=== PATIENT | female | born 1945 | race Caucasian/White ===

== ENCOUNTER → 2016-07-23 | Outpatient (CLI) | payer MEDICARE ==
[~2016-07-23] MED LIST: ALEN70TA5 PO; ASPI-13 PO; INSU100V8 SQ; LEVO25TA4 PO; LISI40TA PO; METF10002 PO; PRAV40TA2 PO; TIOT18CA INH
== END | disposition home or self-care (01) ==
LOC: CVU 10:29
PROVIDERS: ATTEND Registered Nurse
DX: Z86.73 Personal history of transient ischemic attack (TIA), and cerebral infarction without residual deficits (principal)
CPT/HCPCS: 93880

== ENCOUNTER 2019-01-30 18:52 | Inpatient (IN) | payer MEDICARE ==
[~2019-01-30] VITALS: Ht 165.1 cm; Wt 62.0 kg
[~2019-01-30 18:52] MED LIST changes: -ALEN70TA5 PO; +ALEN70TA6 PO; +CLOP75TA PO; +GLIP5TAB10 PO
--- NOTE | 2019-01-30 19:00 | NUR ---
NO ASWER FROM TRIAGE
[2019-01-30] MEDS ORDERED: AMLO10TA8 PO (19:35)
[2019-01-30] MEDS ORDERED: EMPA25TA PEG (19:35)
[2019-01-30 20:00] LABS: BASOPHILS # (AUTO) 0.01 x10^3/uL (0-0.1); BASOPHILS % (AUTO) 0 % (0-1); EOSINOPHILS # (AUTO) 0.19 x10^3/uL (0-0.4); EOSINOPHILS % (AUTO) 4 % (1-7); LYMPHOCYTES # (AUTO) 1.21 x10^3/uL (1-3.4); LYMPHOCYTES % (AUTO) 23 % (22-44); MD NO; MEAN CORPUSCULAR HEMOGLOBIN 31.7 pg (27.0-34.8); MEAN CORPUSCULAR HGB CONC 33.6 g/dL (32.4-35.8); MEAN CORPUSCULAR VOLUME 94.2 fL (80-100); MEAN PLATELET VOLUME 7.4 fL (7.4-10.4); MONOCYTES # (AUTO) 0.41 x10^3/uL (0.2-0.8); MONOCYTES % (AUTO) 8 % (2-9); NEUTROPHILS # (AUTO) 3.49 x10^3/uL (1.8-6.8); NEUTROPHILS % (AUTO) 66 % (42-75); PLATELET COUNT 403 x10^3/uL (130-400); RED BLOOD COUNT 2.69 x10^6/uL (3.82-5.3); RED CELL DISTRIBUTION WIDTH 15.1 % (9.6-15.2)
[2019-01-30] MEDS ORDERED: ONDANSETRON 2MG/ML, 2ML IVPush ONE (20:00)
[2019-01-30] MEDS ORDERED: MORPHINE SULFATE 4 MG/ML, 1ML IVPush PRN (20:00)
[2019-01-30 20:08] LABS: INTERNATIONAL NORMALIZED RATIO 0.95 (0.93-1.1)
[2019-01-30 20:09] LABS: ALANINE AMINOTRANSFERASE 31 U/L (12-78); ALBUMIN 3.8 g/dL (3.4-5.0); ANION GAP 6 mmol/L (5-15); CHLORIDE 109 mmol/L (98-107); CREATININE 1.57 mg/dL (0.55-1.02)
[2019-01-30 20:11] LABS: ALKALINE PHOSPHATASE 79 U/L (45-117); BILIRUBIN,TOTAL 0.4 mg/dL (0.2-1.0); TOTAL PROTEIN 7.4 g/dL (6.4-8.2)
[2019-01-30] MEDS ORDERED: ONDANSETRON 2MG/ML, 2ML ONE (20:26)
[2019-01-30] MEDS ORDERED: MORPHINE SULFATE 4 MG/ML, 1ML ONE (20:26)
--- NOTE | 2019-01-30 20:40 | NUR ---
PT HAS CO OF LOWER LEG PAIN AND NUMBNESS. PT STATES SHE IS PT W DR MENA AND RECENTLY HAD A "ROTOR ROOTER" PROCEDURE DONE W A STENT. WAS TOLD TO COME TO ED IF PAIN WAS WORSE. IV ESTABLISHED MEDICATED PER ORDERS. WILL BE ADMITTED.
--- NOTE | 2019-01-30 20:45 | NUR ---
PT CHANGING IN PJ BOTTOMS AND GIVEN WARM BLANKET. PT IS MORE CHEERFUL AFTER TALKING.
[2019-01-30] MEDS ORDERED: ACETAMINOPHEN 325 MG TABLET PO PRN (21:30)
[2019-01-30] MEDS ORDERED: ONDANSETRON 2MG/ML, 2ML IVPush PRN (21:30)
--- NOTE | 2019-01-30 21:42 | NUR ---
REPORT TO MAYUR
[2019-01-30] MEDS ORDERED: SODIUM POLYSTYRENE SULFONATE ORAL SUSP PO ONE (22:00)
[2019-01-30] MEDS ORDERED: ALBUTEROL/IPRATROPIUM 2.5MG/0.5MG, 3 ML HHN PRN (22:00)
[2019-01-30] MEDS ORDERED: INSULIN GLARGINE 100 UNITS/ML, PEN SQ-INSULIN SCH (22:00)
[2019-01-30 22:02] VITALS: BP 152/75
[2019-01-30] MEDS: PRAVASTATIN 40 MG TABLET PO SCH (22:31)
[2019-01-30] MEDS: ENOXAPARIN 40 MG/0.4 ML SQ SCH (22:31)
[2019-01-30] MEDS: SODIUM CHLORIDE 0.9% 1,000 ML IV SCH (22:31)
[2019-01-30 22:46] VITALS: BP 152/75
[2019-01-31 01:11] VITALS: BP 105/57
[2019-01-31 05:20] LABS: BASOPHILS # (AUTO) 0.02 x10^3/uL (0-0.1); BASOPHILS % (AUTO) 1 % (0-1); EOSINOPHILS % (AUTO) 4 % (1-7); LYMPHOCYTES # (AUTO) 1.52 x10^3/uL (1-3.4); LYMPHOCYTES % (AUTO) 32 % (22-44); MD NO; MEAN CORPUSCULAR HGB CONC 32.8 g/dL (32.4-35.8); MEAN CORPUSCULAR VOLUME 94.5 fL (80-100); MEAN PLATELET VOLUME 7.4 fL (7.4-10.4); MONOCYTES # (AUTO) 0.51 x10^3/uL (0.2-0.8); MONOCYTES % (AUTO) 11 % (2-9); NEUTROPHILS % (AUTO) 53 % (42-75); PLATELET COUNT 372 x10^3/uL (130-400); RED CELL DISTRIBUTION WIDTH 14.8 % (9.6-15.2)
[2019-01-31 05:22] LABS: HCT (SEDRATE) 23.4 % (34.6-47.8)
[2019-01-31 05:28] LABS: ANION GAP 3 mmol/L (5-15); CALCIUM 8.3 mg/dL (8.5-10.1); CHLORIDE 116 mmol/L (98-107); CREATININE 1.28 mg/dL (0.55-1.02)
[2019-01-31] MEDS: LEVOTHYROXINE 25 MCG TABLET PO SCH (06:03)
[2019-01-31] MEDS: HYDROcodone/APAP 5/325 TABLET PO PRN (06:04)
[2019-01-31] MEDS: INSULIN LISPRO 100 UNITS/ML, PEN SQ-INSULIN SCH ×4 (07:00→23:58)
[2019-01-31] MEDS ORDERED: DEXTROSE 4 GM TAB.CHEW PO PRN (08:00)
[2019-01-31] MEDS ORDERED: GLUCAGON 1 MG IM PRN (08:00)
[2019-01-31] MEDS: DEXTROSE 50%, 50ML SYRINGE IVPush PRN ×2 (08:21→11:48)
[2019-01-31] MEDS: SODIUM CHLORIDE 0.9% 1,000 ML IV SCH ×2 (08:21→18:00)
[2019-01-31] MEDS: SODIUM CHLORIDE FLUSH 10ML SYR IVF SCH ×2 (09:00→23:19)
[2019-01-31] MEDS: AMLODIPINE 10 MG TAB PO SCH (09:00)
[2019-01-31] MEDS ORDERED: LISINOPRIL 40 MG TABLET PO SCH (09:00)
[2019-01-31] MEDS: CLOPIDOGREL 75 MG TABLET PO SCH (09:00)
[2019-01-31 09:56] VITALS: BP 115/64
[2019-01-31 10:05] LABS: HEMOGLOBIN A1C 8.9 % (4.2-6.3)
[2019-01-31 14:00] VITALS: BP 129/74
[2019-01-31] MEDS ORDERED: HEPARIN 1,000 UNITS/ML, 30ML ONE (16:00)
[2019-01-31] MEDS ORDERED: PROTAMINE SULFATE 10 MG/ML, 5ML ONE (16:01)
[2019-01-31] MEDS ORDERED: THROMBIN 5,000 UNIT VIAL TP ONE ×2 (16:01→19:55)
[2019-01-31] MEDS ORDERED: FENTANYL PF 250 MCG/5ML ONE (16:19)
[2019-01-31] MEDS ORDERED: ONDANSETRON 2MG/ML, 2ML ONE (16:35)
[2019-01-31] MEDS ORDERED: PROPOFOL 10 MG/ML, 20ML ONE (16:35)
[2019-01-31] MEDS ORDERED: SUCCINYLCHOLINE 20 MG/ML, 10ML ONE (16:35)
[2019-01-31] MEDS ORDERED: ROCURONIUM 10MG/ML,5ML ONE (16:35)
[2019-01-31] MEDS ORDERED: PHENYLEPHRINE 10 MG/ML ONE (16:35)
[2019-01-31] MEDS ORDERED: DEXAMETHASONE 4 MG/ML, 1ML ONE (16:35)
[2019-01-31] MEDS ORDERED: CEFAZOLIN 1,000 MG ONE (16:35)
[2019-01-31] MEDS ORDERED: SUGAMMADEX 200 MG/2 ML IVPush ONE (16:35)
[2019-01-31] MEDS ORDERED: DEXTROSE 50%, 50ML SYRINGE ONE (16:35)
[2019-01-31] MEDS ORDERED: LABETALOL 5MG/ML, 20ML IV PRN (17:30)
[2019-01-31] MEDS ORDERED: HYDROmorphone 2 MG/ML, 1ML IVPush PRN (17:30)
[2019-01-31] MEDS ORDERED: MEPERIDINE/PF 25MG/ML,1ML IVPush PRN (17:30)
[2019-01-31] MEDS ORDERED: PROMETHAZINE 25 MG/ML, 1ML IV PRN (17:30)
[2019-01-31] MEDS ORDERED: HALOPERIDOL 5 MG/ML IV PRN (17:30)
[2019-01-31] MEDS ORDERED: hydrALAzine 20 MG/ML, 1ML IV PRN (17:30)
[2019-01-31] MEDS ORDERED: OXYcodone 5 MG/5 ML ORAL.SOL UDC PO PRN (17:30)
[2019-01-31] MEDS ORDERED: ALBUTEROL SULFATE 2.5 MG/3 ML NPPB PRN (17:30)
[2019-01-31] MEDS ORDERED: ALBUTEROL/IPRATROPIUM 2.5MG/0.5MG, 3 ML HHN PRN (19:30)
[2019-01-31] MEDS ORDERED: CALCIUM CHLORIDE 10%, 10ML SYR ONE (19:35)
[2019-01-31] MEDS ORDERED: FENTANYL PF 100 MCG/2ML ONE (21:09)
[2019-01-31] MEDS: FENTANYL PF 100 MCG/2ML IV PRN ×3 (21:12→21:25)
[2019-01-31] MEDS: ENOXAPARIN 40 MG/0.4 ML SQ SCH (21:30)
[2019-01-31] MEDS ORDERED: OXYcodone 5 MG/5 ML ORAL.SOL UDC ONE (21:44)
[2019-01-31] MEDS ORDERED: hydrALAzine 20 MG/ML, 1ML ONE (21:45)
[2019-01-31 22:06] VITALS: BP 158/79
[2019-01-31] MEDS: CALCIUM CARBONATE 500 MG TAB.CHEW PO SCH (23:18)
[2019-01-31] MEDS: PRAVASTATIN 40 MG TABLET PO SCH (23:19)
[2019-01-31] MEDS: INSULIN GLARGINE 100 UNITS/ML, PEN SQ-INSULIN SCH (23:59)
[2019-02-01] MEDS: HYDROcodone/APAP 5/325 TABLET PO PRN (00:13)
[2019-02-01 00:48] VITALS: BP 131/73
[2019-02-01 05:08] LABS: BASOPHILS # (AUTO) 0.02 x10^3/uL (0-0.1); BASOPHILS % (AUTO) 0 % (0-1); EOSINOPHILS % (AUTO) 0 % (1-7); LYMPHOCYTES # (AUTO) 0.72 x10^3/uL (1-3.4); LYMPHOCYTES % (AUTO) 12 % (22-44); MD NO; MEAN CORPUSCULAR HEMOGLOBIN 31.6 pg (27.0-34.8); MEAN CORPUSCULAR HGB CONC 33.4 g/dL (32.4-35.8); MEAN CORPUSCULAR VOLUME 94.6 fL (80-100); MEAN PLATELET VOLUME 7.6 fL (7.4-10.4); MONOCYTES # (AUTO) 0.36 x10^3/uL (0.2-0.8); MONOCYTES % (AUTO) 6 % (2-9); NEUTROPHILS # (AUTO) 4.83 x10^3/uL (1.8-6.8); NEUTROPHILS % (AUTO) 82 % (42-75); PLATELET COUNT 307 x10^3/uL (130-400); RED BLOOD COUNT 3.09 x10^6/uL (3.82-5.3); RED CELL DISTRIBUTION WIDTH 14.3 % (9.6-15.2)
[2019-02-01] MEDS: SODIUM CHLORIDE 0.9% 1,000 ML IV SCH ×2 (05:10→19:49)
[2019-02-01] MEDS: LEVOTHYROXINE 25 MCG TABLET PO SCH (05:10)
[2019-02-01 05:25] LABS: CHLORIDE 108 mmol/L (98-107)
[2019-02-01 05:30] LABS: ALBUMIN 2.8 g/dL (3.4-5.0); ANION GAP 8 mmol/L (5-15); CALCIUM 8.2 mg/dL (8.5-10.1); CREATININE 1.05 mg/dL (0.55-1.02)
[2019-02-01 08:34] VITALS: BP 148/70
[2019-02-01] MEDS: CLOPIDOGREL 75 MG TABLET PO SCH (08:37)
[2019-02-01] MEDS: AMLODIPINE 10 MG TAB PO SCH (08:37)
[2019-02-01] MEDS: CALCIUM CARBONATE 500 MG TAB.CHEW PO SCH ×2 (08:37→21:31)
[2019-02-01] MEDS: MULTIVITS,STRESS FORMULA 1 TABLET PO SCH (08:37)
[2019-02-01] MEDS: SODIUM CHLORIDE FLUSH 10ML SYR IVF SCH ×2 (08:39→21:00)
[2019-02-01] MEDS: ENOXAPARIN 40 MG/0.4 ML SQ SCH (08:40)
[2019-02-01] MEDS: INSULIN LISPRO 100 UNITS/ML, PEN SQ-INSULIN SCH ×4 (08:41→21:32)
[2019-02-01] MEDS: ASCORBIC ACID 500 MG TABLET PO SCH ×2 (08:42→17:38)
[2019-02-01] MEDS ORDERED: ACETAMINOPHEN 325 MG TABLET PO PRN (11:00)
[2019-02-01 14:08] VITALS: BP 150/73
[2019-02-01] MEDS ORDERED: CHOLECALCIFEROL 400 UNITS/ML ORAL SOL PO SCH (16:30)
[2019-02-01 17:50] VITALS: BP 153/71
[2019-02-01] MEDS: CARVEDILOL 6.25 MG TABLET PO SCH (17:52)
[2019-02-01] MEDS: CHOLECALCIFEROL 400 UNITS/ML ORAL SOL PO SCH (18:12)
[2019-02-01 19:05] VITALS: BP 157/70
[2019-02-01] MEDS: PRAVASTATIN 40 MG TABLET PO SCH (21:31)
[2019-02-01] MEDS: INSULIN GLARGINE 100 UNITS/ML, PEN SQ-INSULIN SCH (21:32)
[2019-02-02 00:33] VITALS: BP 146/64
[2019-02-02] MEDS: HYDROcodone/APAP 5/325 TABLET PO PRN (01:11)
[2019-02-02 05:01] LABS: % IRON SATURATION 14 % (20-55); IRON LEVEL 36 mcg/dL (50-170); TOTAL IRON BINDING CAPACITY 255 mcg/dL (250-450)
[2019-02-02 07:14] VITALS: BP 144/71
[2019-02-02] MEDS: CARVEDILOL 6.25 MG TABLET PO SCH ×2 (07:33→18:09)
[2019-02-02] MEDS: LEVOTHYROXINE 25 MCG TABLET PO SCH (07:33)
[2019-02-02] MEDS: CALCIUM CARBONATE 500 MG TAB.CHEW PO SCH ×2 (07:42→21:07)
[2019-02-02] MEDS: MULTIVITS,STRESS FORMULA 1 TABLET PO SCH (07:42)
[2019-02-02] MEDS: CLOPIDOGREL 75 MG TABLET PO SCH (07:42)
[2019-02-02] MEDS: ASCORBIC ACID 500 MG TABLET PO SCH ×2 (07:42→16:51)
[2019-02-02] MEDS: INSULIN LISPRO 100 UNITS/ML, PEN SQ-INSULIN SCH ×4 (07:43→21:08)
[2019-02-02] MEDS: SODIUM CHLORIDE FLUSH 10ML SYR IVF SCH ×2 (07:43→21:09)
[2019-02-02] MEDS ORDERED: FERROUS SULFATE 325 MG TABLET PO SCH (08:30)
[2019-02-02] MEDS ORDERED: SENNA/DOCUSATE TABLET PO SCH (09:00)
[2019-02-02] MEDS ORDERED: HYDROcodone/APAP 5/325 TABLET PO PRN (09:30)
[2019-02-02] MEDS ORDERED: BISACODYL 10 MG SUPP PR ONE (10:30)
[2019-02-02] MEDS ORDERED: MAGNESIUM CITRATE 300ML ORAL SOL PO ONE ×2 (10:30→11:00)
[2019-02-02] MEDS: ACETAMINOPHEN 325 MG TABLET PO SCH ×3 (12:22→22:56)
[2019-02-02 14:17] VITALS: BP 127/74
[2019-02-02] MEDS: SODIUM CHLORIDE 0.9% 1,000 ML IV SCH (14:52)
[2019-02-02] MEDS ORDERED: CHOLECALCIFEROL 400 UNITS/ML ORAL SOL PO SCH (16:30)
[2019-02-02] MEDS: CHOLECALCIFEROL 400 UNITS/ML ORAL SOL PO SCH (16:51)
[2019-02-02 18:08] VITALS: BP 155/65
[2019-02-02 19:46] VITALS: BP 143/59
[2019-02-02] MEDS: ENOXAPARIN 40 MG/0.4 ML SQ SCH (21:07)
[2019-02-02] MEDS: PRAVASTATIN 40 MG TABLET PO SCH (21:07)
[2019-02-02] MEDS: INSULIN GLARGINE 100 UNITS/ML, PEN SQ-INSULIN SCH (21:08)
[2019-02-03 03:45] VITALS: BP 127/76
[2019-02-03] MEDS: CARVEDILOL 6.25 MG TABLET PO SCH ×2 (05:32→17:30)
[2019-02-03] MEDS: LEVOTHYROXINE 25 MCG TABLET PO SCH (05:32)
[2019-02-03] MEDS: ACETAMINOPHEN 325 MG TABLET PO SCH ×3 (05:32→16:40)
[2019-02-03] MEDS: INSULIN LISPRO 100 UNITS/ML, PEN SQ-INSULIN SCH ×3 (07:00→16:40)
[2019-02-03] MEDS: SODIUM CHLORIDE 0.9% 1,000 ML IV SCH (07:20)
[2019-02-03] MEDS ORDERED: SENNA/DOCUSATE TABLET PO PRN (08:00)
[2019-02-03] MEDS ORDERED: HYDROcodone/APAP 5/325 TABLET PO PRN (08:00)
[2019-02-03 08:10] VITALS: BP 151/69
[2019-02-03] MEDS: CLOPIDOGREL 75 MG TABLET PO SCH (08:15)
[2019-02-03] MEDS: MULTIVITS,STRESS FORMULA 1 TABLET PO SCH (08:15)
[2019-02-03] MEDS: SODIUM CHLORIDE FLUSH 10ML SYR IVF SCH (08:16)
[2019-02-03] MEDS: CALCIUM CARBONATE 500 MG TAB.CHEW PO SCH (08:16)
[2019-02-03] MEDS: LACTOBACILLUS CHEW TABLET PO SCH ×2 (08:16→16:40)
[2019-02-03] MEDS: ASCORBIC ACID 500 MG TABLET PO SCH ×2 (08:16→16:41)
[2019-02-03] MEDS ORDERED: INSU100I11 SQ-INSULIN (10:42)
[2019-02-03] MEDS ORDERED: ASCO500T6 PO (10:42)
[2019-02-03] MEDS ORDERED: SENN-193 PO (10:42)
[2019-02-03] MEDS ORDERED: CALC200T24 PO (10:42)
[2019-02-03] MEDS ORDERED: ACID1TAB7 PO (10:42)
[2019-02-03] MEDS ORDERED: FERR-51 PO (10:42)
[2019-02-03] MEDS ORDERED: ACET325T26 PO (10:42)
[2019-02-03] MEDS ORDERED: MULT1TAB76 PO (10:42)
[2019-02-03] MEDS: CHOLECALCIFEROL 400 UNITS/ML ORAL SOL PO SCH (16:40)
[2019-02-03] MEDS ORDERED: INSULIN GLARGINE 100 UNITS/ML, PEN SQ-INSULIN SCH (21:00)
== END 2019-02-03 18:18 | disposition home or self-care (01) | DRG 270 ==
LOC: ED 19:48 → EDIP 20:56 → 3N 21:49 → 4NE 01-31 20:58 → 5SO 01-31 22:36 → 4NE 02-01 16:06
PROVIDERS: ADMIT Internal Medicine; ATTEND Internal Medicine
PROC: 04CM3ZZ Extirpation of Matter from Right Popliteal Artery, Percutaneous Approach (ICD-10-PCS; 2019-01-31)
PROC: 06BP0ZZ Excision of Right Saphenous Vein, Open Approach (ICD-10-PCS; 2019-01-31)
PROC: 04UK07Z Supplement Right Femoral Artery with Autologous Tissue Substitute, Open Approach (ICD-10-PCS; 2019-01-31)
PROC: 047M3ZZ Dilation of Right Popliteal Artery, Percutaneous Approach (ICD-10-PCS; 2019-01-31)
PROC: 30233N1 Transfusion of Nonautologous Red Blood Cells into Peripheral Vein, Percutaneous Approach (ICD-10-PCS; 2019-01-31)
PROC: 03HY32Z Insertion of Monitoring Device into Upper Artery, Percutaneous Approach (ICD-10-PCS; 2019-01-31)
PROC: 047C3ZZ Dilation of Right Common Iliac Artery, Percutaneous Approach (ICD-10-PCS; 2019-01-31)
PROC: 04703DZ Dilation of Abdominal Aorta with Intraluminal Device, Percutaneous Approach (ICD-10-PCS; 2019-01-31)
PROC: 04Q Lower Arteries, Repair (ICD-10-PCS; 2019-01-31)
PROC: 04CK0ZZ Extirpation of Matter from Right Femoral Artery, Open Approach (ICD-10-PCS; principal; 2019-01-31 15:00)
DX: I70.221 Atherosclerosis of native arteries of extremities with rest pain, right leg (principal); N17.0 Acute kidney failure with tubular necrosis; D62 Acute posthemorrhagic anemia; E03.9 Hypothyroidism, unspecified; E11.22 Type 2 diabetes mellitus with diabetic chronic kidney disease; E11.51 Type 2 diabetes mellitus with diabetic peripheral angiopathy without gangrene; E11.65 Type 2 diabetes mellitus with hyperglycemia; E78.00 Pure hypercholesterolemia, unspecified; E83.51 Hypocalcemia; G47.30 Sleep apnea, unspecified; I12.9 Hypertensive chronic kidney disease with stage 1 through stage 4 chronic kidney disease, or unspecified chronic kidney disease; J44.9 Chronic obstructive pulmonary disease, unspecified; K59.00 Constipation, unspecified; M81.0 Age-related osteoporosis without current pathological fracture; N18.9 Chronic kidney disease, unspecified; Z79.84 Long term (current) use of oral hypoglycemic drugs; Z79.890 Hormone replacement therapy; Z79.899 Other long term (current) drug therapy; Z87.891 Personal history of nicotine dependence; Z95.5 Presence of coronary angioplasty implant and graft; Z99.81 Dependence on supplemental oxygen; Z88.5 Allergy status to narcotic agent
CPT/HCPCS: 36415; 75710; 80047; 80048; 80053; 80069; 82330; 82803; 82947; 82962; 83036; 83540; 83550; 83735; 84132; 84295; 85014; 85025; 85610; 85651; 85730; 86850; 86900; 86923; 93926; 99285; C1725; C1729; G0378; J0690; J1100; J1644; J1650; J2405; J2704; J2720; J3010; C1714; C1751; C1760; C1769; C1876; C1884; C1894; J0330; J0360; J1815; J2270; J2370; J7030; P9016

== ENCOUNTER → 2019-12-03 | Outpatient (CLI) | payer MEDICARE ==
[~2019-12-03] MED LIST changes: +ACET325T26 PO; +ACID1TAB7 PO; +AMLO10TA8 PO; +ASCO500T9 PO; +CALC200T24 PO; +EMPA25TA PEG; +FERR-51 PO; +INSU100I11 SQ-INSULIN; +MULT1TAB76 PO; +SENN-193 PO
== END | disposition home or self-care (01) ==
LOC: CVU 08:35
PROVIDERS: ATTEND Internal Medicine Cardiovascular Disease
DX: I08.0 Rheumatic disorders of both mitral and aortic valves (principal); I10 Essential (primary) hypertension; G45.9 Transient cerebral ischemic attack, unspecified
CPT/HCPCS: 93306

== ENCOUNTER → 2019-12-30 | Outpatient (CLI) | payer MEDICARE ==
[~2019-12-30] MED LIST changes: +REGADENOSON 0.4 MG/5 ML SYRINGE ONE
== END | disposition home or self-care (01) ==
LOC: CFH 08:17
PROVIDERS: ATTEND Internal Medicine Cardiovascular Disease
DX: I25.89 Other forms of chronic ischemic heart disease (principal); I10 Essential (primary) hypertension; Z86.73 Personal history of transient ischemic attack (TIA), and cerebral infarction without residual deficits
CPT/HCPCS: 78452; 93017; A9502; J2785

== ENCOUNTER 2020-08-29 09:50 | Day surgery (SDC) | payer MEDICARE ==
[~2020-08-29] VITALS: Ht 165.1 cm; Wt 56.4 kg
[~2020-08-29 09:50] MED LIST changes: -ALEN70TA6 PO; +ALEN70TA77 PO; +AMLO-211 PO; -AMLO10TA8 PO; -LISI40TA PO; +LISI40TA9 PO; -REGADENOSON 0.4 MG/5 ML SYRINGE ONE
[2020-08-29] MEDS ORDERED: SODIUM CHLORIDE 0.9% 1,000 ML IV SCH ×2 (11:00→12:30)
[2020-08-29 11:01] VITALS: BP 152/73
[2020-08-29] MEDS ORDERED: INSU100V8 SQ (11:04)
[2020-08-29] MEDS ORDERED: FLUT1BLS IH (11:05)
[2020-08-29] MEDS ORDERED: ATOR40TA PO (11:13)
[2020-08-29] MEDS ORDERED: ACET-76 PO (11:13)
[2020-08-29] MEDS ORDERED: AMLO-211 PO (11:13)
[2020-08-29] MEDS ORDERED: HYDR25TA6 PO (11:13)
[2020-08-29] MEDS ORDERED: ASPI81TA45 PO (11:13)
[2020-08-29] MEDS ORDERED: FERR324T5 PO (11:14)
[2020-08-29] MEDS ORDERED: FENTANYL PF 100 MCG/2ML ONE (11:50)
[2020-08-29] MEDS ORDERED: VERAPAMIL 2.5 MG/ML, 2ML ONE (11:50)
[2020-08-29] MEDS ORDERED: MIDAZOLAM 1 MG/ML, 5ML ONE (11:50)
[2020-08-29] MEDS ORDERED: LIDOCAINE-MPF 1%, 5ML ONE (11:51)
[2020-08-29] MEDS ORDERED: HEPARIN 1,000 UNITS/ML, 10ML ONE (11:51)
== END 2020-08-29 14:40 | disposition home or self-care (01) ==
LOC: CACL 09:50
PROVIDERS: ATTEND Internal Medicine Cardiovascular Disease
DX: R94.39 Abnormal result of other cardiovascular function study (principal); I20.9 Angina pectoris, unspecified; I70.211 Atherosclerosis of native arteries of extremities with intermittent claudication, right leg; I10 Essential (primary) hypertension; E11.9 Type 2 diabetes mellitus without complications; E78.5 Hyperlipidemia, unspecified; Z79.899 Other long term (current) drug therapy; Z87.891 Personal history of nicotine dependence; Z88.5 Allergy status to narcotic agent; Z99.81 Dependence on supplemental oxygen
CPT/HCPCS: 93458; C1769; C1894; J1644; J2250; J3010; Q9967; 99156

== ENCOUNTER 2020-12-16 16:33 | Emergency (ER) | payer MEDICARE ==
[~2020-12-16] VITALS: Ht 165.1 cm; Wt 55.8 kg
[~2020-12-16 16:33] MED LIST changes: +ACET-76 PO; +ASPI81TA45 PO; +ATOR40TA PO; +FERR324T5 PO; +FLUT1BLS IH; +HYDR25TA6 PO
--- NOTE | 2020-12-16 17:36 | NUR ---
PT TO ROOM 21 W/ C/O R LEG PAIN AND NUMBNESS AND ALSO FEELING COLD X FEW DAYS. PT HAS KNOWN BLOOD CLOT IN HER LEG. PT ALSO HAS TWO STENTS IN HER LEG. PT CURRENTLY TAKING PLAVIX AND LOW DOSE ASA FOR DVT. PT RESTING ON GURNEY. NADN. MONITORS APPLIED. VSS. WARM BLANKET PROVIDED. CALL LIGHT IN REACH. PT /O MILD CP X 1 WK "LIKE A DRY WALL FINISHER AND MORE IRRITATING THAN ANYTHING". DENIES HX CARDIAC ISSUES.
[2020-12-16 17:37] LABS: BASOPHILS % (AUTO) 1 % (0-1); EOSINOPHILS % (AUTO) 3 % (1-7); LYMPHOCYTES % (AUTO) 19 % (22-44); MEAN CORPUSCULAR HEMOGLOBIN 31.5 pg (27.0-34.8); MEAN CORPUSCULAR HGB CONC 33.7 g/dL (32.4-35.8); MEAN PLATELET VOLUME 7.2 fL (7.4-10.4); MONOCYTES % (AUTO) 6 % (2-9); NEUTROPHILS % (AUTO) 71 % (42-75); PLATELET COUNT 291 x10^3/uL (130-400); RED CELL DISTRIBUTION WIDTH 13.2 % (9.6-15.2)
[2020-12-16 17:47] LABS: INTERNATIONAL NORMALIZED RATIO 0.93 (0.93-1.1)
[2020-12-16 17:58] LABS: ANION GAP 11 mmol/L (5-15); CALCIUM 10.1 mg/dL (8.5-10.1); CHLORIDE 104 mmol/L (98-107)
[2020-12-16 17:59] LABS: ALANINE AMINOTRANSFERASE 23 U/L (12-78); ALBUMIN 3.8 g/dL (3.4-5.0); ALKALINE PHOSPHATASE 85 U/L (45-117); BILIRUBIN,TOTAL 0.6 mg/dL (0.2-1.0); CREATININE 1.11 mg/dL (0.55-1.02); TOTAL PROTEIN 7.4 g/dL (6.4-8.2)
[2020-12-16 18:00] LABS: TROPONIN I < 0.015 ng/mL (0.000-0.045)
--- NOTE | 2020-12-16 18:33 | NUR ---
PT TO AND FROM RESTROOM IN . PT RESTING ON DENNIS. NADN. COYLES.
--- NOTE | 2020-12-16 19:13 | NUR ---
PT RESTING ON DENNIS. VSS. VASCUILAR AT BEDSIDE.
[2020-12-16 19:14] VITALS: BP 162/99
== END 2020-12-16 20:06 | disposition home or self-care (01) ==
LOC: ED 18:40
DX: I70.90 Unspecified atherosclerosis (principal); E11.22 Type 2 diabetes mellitus with diabetic chronic kidney disease; I12.9 Hypertensive chronic kidney disease with stage 1 through stage 4 chronic kidney disease, or unspecified chronic kidney disease; N18.9 Chronic kidney disease, unspecified; E78.5 Hyperlipidemia, unspecified; E03.9 Hypothyroidism, unspecified; Z87.891 Personal history of nicotine dependence
CPT/HCPCS: 36415; 71045; 80053; 84484; 85025; 85610; 85730; 93005; 93922; 93926; 99285